=== PATIENT | male | born 1970 | race Caucasian/White ===

== ENCOUNTER 2017-05-03 18:00 | Emergency (ER) | payer OTHER ==
[~2017-05-03] VITALS: Ht 175.3 cm; Wt 106.6 kg
[2017-05-03] MEDS ORDERED: KEFLEX500 M1 PO (18:11)
[2017-05-03] MEDS ORDERED: ONDANSETRON HCL4 M2 PO (18:11)
[2017-05-03] MEDS ORDERED: HYDROCODONE-AP1 EAC6 PO (18:11)
[2017-05-03 18:40] LABS: ABSOLUTE BASOPHILS 0.1 thou/uL (0.0-0.2); ABSOLUTE EOSINOPHILS 0.2 thou/uL (0.0-0.7); ABSOLUTE LYMPHOCYTES 1.4 thou/uL (0.8-5.3); ABSOLUTE MONOCYTES 0.9 thou/uL (0.0-1.2); ABSOLUTE NEUTROPHILS 10.8 thou/uL (1.6-8.1); BASOPHILS 0.7 %; EOSINOPHILS 1.4 %; HEMATOCRIT 46.8 % (42.0-52.0); HEMOGLOBIN 15.9 gm/dL (14.0-18.0); LYMPHOCYTES 10.7 %; MCH 30.4 pg (26.0-34.0); MCV 89.4 fL (80.0-100.0); MONOCYTES 6.9 %; MPV 6.5 fl. (7.2-11.1); NUCLEATED RBCS 0 /100WBC; PLATELET COUNT* 276 thou/uL (150-400); POLYS 80.3 %; RBC 5.23 mil/uL (4.50-6.00); WBC 13.5 thou/uL (4.0-11.0)
[2017-05-03 18:48] LABS: ANION GAP 5 mmol/L (7-16); BUN 12 mg/dL (7-18); CALCIUM 8.8 mg/dL (8.5-10.1); CHLORIDE 100 mmol/L (98-107); CO2 33 mmol/L (21-32); CREATININE 1.1 mg/dL (0.6-1.3); GLUCOSE 97 mg/dL (70-99); SODIUM 138 mmol/L (136-145)
[2017-05-03 18:59] LABS: ALBUMIN 3.8 g/dL (3.4-5.0); ALKALINE PHOSPHATASE 72 U/L (46-116); LIPASE 118 U/L (73-393); NT-PRO BRAIN NAT PEPTIDE 28 pg/mL (<300); SGOT 23 U/L (15-37); SGPT 40 U/L (30-65); TOTAL BILIRUBIN 0.8 mg/dL (<0.1-1.0); TOTAL PROTEIN 7.3 g/dL (6.4-8.2); TROPONIN-I LEVEL <0.06 ng/mL (<0.06)
[2017-05-03 19:21] VITALS: BP 127/74
--- NOTE | 2017-05-04 15:56 | EKG ---
[place] [address] ELECTROCARDIOGRAM REPORT Name: NARENDRA VIEIRA Room: [facility]#: [id number] Admission: 05/03/17 Attend Phys: Discharge: 05/03/17 Date of : 70 Report #: [id number] THIS REPORT FOR: //name// [facility] ED Test Date: 2017-05-03 Test Time: 18:11:51 Pat Name: NARENDRA VIEIRA Department: Room: Gender: M Box Gluer: : 1970 Requested By: Evaristo Crystal Order Number: [id number] MD: Rico Villareal Measurements Intervals [place] Rate: 65 P: 17 ME: 191 QRS: 39 QRSD: 97 T: 28 QT: 395 QTc: 411 Interpretive Statements Sinus rhythm Probable left atrial enlargement No previous ECG available for comparison Electronically Signed On 05-04-2017 15:56:23 CDT by Rico Villareal [email or web address] <ELECTRONICALLY SIGNED> By: Rico Villareal MD, [facility] 05/04/17 1556 1811 1811 Rico Villareal MD, FACC /EPI
== END 2017-05-03 19:21 | disposition home or self-care (01) ==
LOC: M.ERS 18:00
PROVIDERS: Emergency Medicine
DX: R55 Syncope and collapse (principal); I10 Essential (primary) hypertension; Z85.828 Personal history of other malignant neoplasm of skin